=== PATIENT | female | born 1975 | race Caucasian/White ===

== ENCOUNTER 2016-03-11 16:16 | Emergency (ER) | payer BC ==
[~2016-03-11] VITALS: Ht 165.1 cm; Wt 72.8 kg
[~2016-03-11 16:16] MED LIST: ADDERALL20 MG PO; ADVIL200 MG PO; BACTRIM,SEPT1 TABLET PO; EFFEXOR XR150 MG PO; ERGOCALCIF50000 UNIT PO; METHYLPHENIDATE20 M1 PO; MOTRIN IB200 MG PO; NAPROSYN500 MG PO; PEPCID20 MG PO; PERCOCET 5/31 TABLET PO; PHENERGAN25 MG PR; PROMETHAZINE HC25 M1 PO; RITALIN LA40 MG PO; TYLENOL EXTRA500 MG PO; ULTRAM50 MG PO
[2016-03-11] MEDS ORDERED: METHYLPHENIDATE10 M1 PO (16:37)
[2016-03-11] MEDS ORDERED: ENDOCET 5-3251 EACH PO (16:38)
[2016-03-11 18:08] LABS: MCH 30.2 PG (29.0-34.0); MCHC 33.5 G/DL (30.0-36.0); MCV 90.3 FL (83-99); MEAN PLAT.VOLUME 11.4 uM^3 (9.5-12.4); PLATELET COUNT 209 K/uL (156-360); RBC DIS.WIDTH-CV 13.2 % (11.8-14.6); RBC DIS.WIDTH-SD 42.7 % (39-53); RED BLOOD COUNT 4.43 M/uL (3.80-5.20); WHITE BLOOD COUNT 6.1 K/uL (4.1-10.2)
[2016-03-11 18:17] LABS: CHLORIDE 108 mEq/L (99-109); POTASSIUM 3.8 mEq/L (3.7-5.4); SODIUM 142 mEq/L (136-147)
[2016-03-11 18:19] LABS: GLUCOSE 98 mg/dL (70-99)
[2016-03-11 18:20] LABS: ANION GAP 8 MEQ/L (2-14)
[2016-03-11] MEDS ORDERED: PREDNISONE50 MG PO (18:22)
[2016-03-11] MEDS ORDERED: FIORICET,ESG1 TABLET PO (18:22)
[2016-03-11 18:23] LABS: GFR ESTIMATE (CALCULATED) > 59 mL/min/; UREA NITROGEN (BUN) 13 mg/dL (9-23)
[2016-03-11 18:45] VITALS: BP 128/82
== END 2016-03-11 18:48 | disposition home or self-care (01) ==
LOC: EME 16:16
PROVIDERS: Nurse Practitioner Family
DX: H92.02 Otalgia, left ear (principal); M54.2 Cervicalgia
CPT/HCPCS: 70450; 80048; 85027; 99281; 99284; J7512

== ENCOUNTER 2016-03-12 16:11 | Emergency (ER) | payer BC ==
[~2016-03-12] VITALS: Ht 165.1 cm; Wt 72.0 kg
[~2016-03-12 16:11] MED LIST changes: +ENDOCET 5-3251 EACH PO; +FIORICET,ESG1 TABLET PO; +METHYLPHENIDATE10 M1 PO; +PREDNISONE50 MG PO
[2016-03-12 16:30] VITALS: BP 139/95
== END 2016-03-12 18:52 | disposition home or self-care (01) ==
LOC: EME 16:11
DX: R51 Headache (principal); M62.838 Other muscle spasm; H92.02 Otalgia, left ear; G89.29 Other chronic pain; Z79.891 Long term (current) use of opiate analgesic
CPT/HCPCS: 99281; 99283; J3360